=== PATIENT | male | born 1985 | race African-American/Black ===

== ENCOUNTER 2016-05-28 13:08 | Emergency (ER) | payer SELFPAY ==
[~2016-05-28] VITALS: Ht 160 cm; Wt 76.4 kg
[~2016-05-28 13:08] MED LIST: ULTRACET1 TABLET PO; ZOFRAN ODT4 MG PO
[2016-05-28 13:56] LABS: ADD MIUA? NO; BILIRUBIN NEGATIVE; BLOOD NEGATIVE; COLOR YELLOW ((YELLOW)); GLUCOSE (STRIP) NEGATIVE; KETONES NEGATIVE; LEUKOCYTES NEGATIVE; NITRITE NEGATIVE; PH, URINE 6.5 (5-8); PROTEIN (STRIP) 30; SPECIFIC GRAVITY 1.023 (1.000-1.030); UCUL ADDED? NO; UROBILINOGEN 0.2 MG/DL (0.2-1.0)
[2016-05-28 14:40] LABS: HEMATOCRIT 41.3 % (38.0-50.0); MCHC 34.9 G/DL (30.0-36.0); MCV 77.5 FL (86-99); MEAN PLAT.VOLUME 10.2 uM^3 (9.0-12.4); PLATELET COUNT 285 K/uL (156-360); RBC DIS.WIDTH-CV 12.8 % (11.8-14.6); RBC DIS.WIDTH-SD 35.8 % (39-53); RED BLOOD COUNT 5.33 M/uL (4.00-5.50); WHITE BLOOD COUNT 5.9 K/uL (4.1-10.2)
[2016-05-28 14:52] LABS: CHLORIDE 106 mEq/L (99-109); POTASSIUM 3.9 mEq/L (3.7-5.4); SODIUM 138 mEq/L (136-147)
[2016-05-28 14:54] LABS: GLUCOSE 99 mg/dL (70-99)
[2016-05-28 14:55] LABS: ANION GAP 16 MEQ/L (2-14)
[2016-05-28 14:56] LABS: TOTAL BILIRUBIN 0.6 mg/dL (0.0-1.0)
[2016-05-28 14:58] LABS: ALKALINE PHOSPHATASE 64 IU/L (3-129); GFR ESTIMATE (CALCULATED) > 59 mL/min/
[2016-05-28 14:59] LABS: UREA NITROGEN (BUN) 7 mg/dL (9-23)
[2016-05-28 15:01] LABS: LIPASE 20 U/L (1.0-51.0)
[2016-05-28] MEDS ORDERED: BENTYL20 MG PO (16:26)
[2016-05-28] MEDS ORDERED: NAPROSYN500 MG PO (16:26)
[2016-05-28 16:45] VITALS: BP 176/112
== END 2016-05-28 16:47 | disposition home or self-care (01) ==
LOC: EXP 13:08 → EME 13:08 → EXP 16:47
PROVIDERS: Nurse Practitioner Family
DX: R10.9 Unspecified abdominal pain (principal); I10 Essential (primary) hypertension; Z87.442 Personal history of urinary calculi; F17.200 Nicotine dependence, unspecified, uncomplicated
CPT/HCPCS: 74176; 80053; 81003; 83690; 85027; 99281; 99285

== ENCOUNTER 2016-12-11 11:47 | Emergency (ER) | payer SELFPAY ==
[~2016-12-11] VITALS: Ht 160 cm; Wt 74.8 kg
[~2016-12-11 11:47] MED LIST changes: +BENTYL20 MG PO; +NAPROSYN500 MG PO
[2016-12-11 12:32] LABS: HEMATOCRIT 42.1 % (38.0-50.0); MCH 26.9 PG (29.0-34.0); MCV 79.3 FL (86-99); MEAN PLAT.VOLUME 10.6 uM^3 (9.0-12.4); PLATELET COUNT 245 K/uL (156-360); RBC DIS.WIDTH-CV 13.1 % (11.8-14.6); RBC DIS.WIDTH-SD 36.9 % (39-53); RED BLOOD COUNT 5.31 M/uL (4.00-5.50); WHITE BLOOD COUNT 4.6 K/uL (4.1-10.2)
[2016-12-11 12:48] LABS: CHLORIDE 104 mEq/L (99-109); POTASSIUM 3.8 mEq/L (3.7-5.4); SODIUM 139 mEq/L (136-147)
[2016-12-11 12:49] LABS: GLUCOSE 107 mg/dL (70-99)
[2016-12-11 12:50] LABS: ANION GAP 12 MEQ/L (2-14)
[2016-12-11 12:51] LABS: TOTAL BILIRUBIN 0.4 mg/dL (0.0-1.0)
[2016-12-11 12:52] LABS: ALKALINE PHOSPHATASE 58 IU/L (3-129)
[2016-12-11 12:53] LABS: GFR ESTIMATE (CALCULATED) > 59 mL/min/
[2016-12-11 12:54] LABS: UREA NITROGEN (BUN) 7 mg/dL (9-23)
[2016-12-11 12:59] LABS: LIPASE 25 U/L (1.0-51.0)
[2016-12-11 13:16] LABS: ADD MIUA? YES; BILIRUBIN NEGATIVE; BLOOD NEGATIVE; COLOR YELLOW ((YELLOW)); GLUCOSE (STRIP) NEGATIVE; KETONES NEGATIVE; LEUKOCYTES NEGATIVE; NITRITE NEGATIVE; PROTEIN (STRIP) 100; SPECIFIC GRAVITY 1.016 (1.000-1.030); UROBILINOGEN 0.2 MG/DL (0.2-1.0)
[2016-12-11 13:19] LABS: BACTERIA NONE SEEN /HPF; EPITHELIAL CELLS RARE /HPF; MUCUS TRACE /LPF; RED BLOOD CELLS 0-5 /HPF (0-5); UCUL ADDED? NO; WHITE BLOOD CELLS 0-5 /HPF (0-5)
[2016-12-11] MEDS ORDERED: ZOFRAN ODT4 MG PO (14:28)
[2016-12-11] MEDS ORDERED: BENTYL10 MG PO (14:28)
[2016-12-11 14:35] VITALS: BP 160/98
== END 2016-12-11 14:45 | disposition home or self-care (01) ==
LOC: EME 11:47
DX: R10.84 Generalized abdominal pain (principal); R11.2 Nausea with vomiting, unspecified; R19.7 Diarrhea, unspecified; I10 Essential (primary) hypertension; Z87.442 Personal history of urinary calculi; F17.200 Nicotine dependence, unspecified, uncomplicated
CPT/HCPCS: 74177; 80053; 81003; 83690; 85027; 99281; 99285; J1885; J2270; J2405; J7030